=== PATIENT | female | born 1995 | race American Indian/Alaskan Native ===

== ENCOUNTER 2016-12-07 05:37 | Emergency (ER) | payer BC ==
[2016-12-07 06:28] VITALS: BP 115/75
[2016-12-07 07:00] LABS: Bacteria,Urine 1+ /HPF (Negative); Bilirubin,Urine NEG (Negative); Blood,Urine MOD (Negative); Ketones,Urine TR mg/dL (Negative); Leukocyte Esterase,Urine MOD (Negative); Mucus,Urine 3+ /HPF; Nitrite,Urine NEG (Negative)
[2016-12-07 07:05] LABS: Basophils % (Auto) 0.6 % (0.0-1.8); Eosinophils % (Auto) 4.2 % (0.0-4.3); Hematocrit 41.1 % (30.3-42.9); Hemoglobin 13.3 gm/dl (10.1-14.3); Mean Corpuscular HGB Conc 32 % (30-34); Mean Corpuscular Hemoglobin 28 pg (28-32); Mean Corpuscular Volume 87 fl (79-97); Platelet Count 214 K/mm3 (140-440); Red Cell Distribution Width 13.2 % (13.2-15.2); White Blood Count 5.3 K/mm3 (4.5-11.0)
[2016-12-07 07:15] LABS: Anion Gap 18 mmol/L; Blood Urea Nitrogen 9 mg/dL (7-17); Calcium 8.9 mg/dL (8.4-10.2); Carbon Dioxide 26 mmol/L (22-30); Chloride 96.1 mmol/L (98-107); Glucose 99 mg/dL (65-100); Potassium 3.7 mmol/L (3.6-5.0); Sodium 136 mmol/L (137-145)
--- NOTE | 2016-12-08 21:39 | ED Elopement Review ---
ED Pt Elopement review - Results review Lab results: Laboratory Tests 12/07/16 12/07/16 12/07/16 06:37 06:37 Unknown WBC 5.3 RBC 4.70 Hgb 13.3 Hct 41.1 MCV 87 MCH 28 MCHC 32 RDW 13.2 Plt Count 214 Lymph % (Auto) 19.7 [place] % (Auto) 12.7 H Eos % (Auto) 4.2 Baso % (Auto) 0.6 Lymph # 1.0 L [place] # 0.7 Eos # 0.2 Baso # 0.0 Seg Neutrophils % 62.8 Seg Neutrophils # 3.3 Sodium 136 L Potassium 3.7 Chloride 96.1 L Carbon Dioxide 26 Anion Gap 18 BUN 9 Creatinine 0.5 L Estimated GFR > 60 BUN/Creatinine Ratio 18.00 Glucose 99 Calcium 8.9 Troponin T < 0.010 Urine Color Kim Urine Turbidity Slightly-cloudy Urine pH 6.0 Ur Specific [place] 1.031 H Urine Protein 30 mg/dl Urine Glucose (UA) Neg Urine Ketones Tr Urine Blood Mod Urine Nitrite Neg Ur Reducing Substances Not Reportable Urine Bilirubin Neg Urine Ictotest Not Reportable Urine Urobilinogen 4.0 Ur Leukocyte Esterase Mod Urine WBC (Auto) 9.0 H Urine RBC (Auto) 47.0 U Epithel Cells (Auto) 14.0 H Urine Bacteria (Auto) 1+ Urine Mucus 3+ Urine HCG, Qual Negative - Call Back decision Pt Call Back Decision: No action required
== END 2016-12-07 14:30 | disposition left against medical advice (07) ==
LOC: ED 05:37
DX: R07.9 Chest pain, unspecified (principal); R06.02 Shortness of breath; Z53.21 Procedure and treatment not carried out due to patient leaving prior to being seen by health care provider
CPT/HCPCS: 36415; 80048; 81001; 81025; 84484; 85025; 93005; 93010

== ENCOUNTER 2019-11-27 20:18 | Emergency (ER) | payer SELFPAY ==
--- NOTE | 2019-11-27 22:20 | Emergency Department Report ---
Blank Doc - Documentation Documentation: 24-year-old female that presents with chest pain and SOB. This initial assessment/diagnostic orders/clinical plan/treatment(s) is/are subject to change based on patient's health status, clinical progression and re- assessment by fellow clinical providers in the ED. Further treatment and workup at subsequent clinical providers discretion. Patient/guardians urged not to elope from the ED as their condition may be serious if not clinically assessed and managed. Initial orders include: 1- Patient sent to [facility] for further evaluation and treatment 2- CXR 3- EKG
[2019-11-27 22:24] VITALS: BP 108/58
--- NOTE | 2019-11-27 23:03 | XRay Report ---
CHEST 2 VIEWS INDICATION / CLINICAL INFORMATION: cp/sob. COMPARISON: None available. FINDINGS: SUPPORT DEVICES: None. HEART / MEDIASTINUM: No significant abnormality. LUNGS / PLEURA: No significant pulmonary or pleural abnormality. .No pneumothorax. ADDITIONAL FINDINGS: No significant additional findings. IMPRESSION: 1. No acute findings. Signer Name: Billy Wray MD Signed: 11/27/2019 10:58 PM Workstation Name: [id number]
== END 2019-11-28 01:25 | disposition left against medical advice (07) ==
LOC: ED 20:18
DX: R06.00 Dyspnea, unspecified (principal); Z53.21 Procedure and treatment not carried out due to patient leaving prior to being seen by health care provider
CPT/HCPCS: 71046; 93005; 93010